=== PATIENT | male | born 1960 | race Caucasian/White ===

== ENCOUNTER → 2018-08-27 | Outpatient (CLI) | payer MEDICARE ==
--- NOTE | 2018-08-27 16:30 | US ---
EXAM DESCRIPTION: Venous,Upper Extremity RT CLINICAL HISTORY: Pain in right arm COMPARISON: None Available. TECHNIQUE: Right upper extremity venous duplex FINDINGS: Thrombus is noted within the right basilic and cephalic veins. Remainder of the right upper extremity veins appear normal with no evidence of thrombosis.. IMPRESSION: Thrombus is noted within the right basilic and cephalic veins. Electronically signed by: Samy Waterman MD 08/27/2018 4:28 PM CDT
== END ==
LOC: LAB.O 15:03
PROVIDERS: ATTEND Nurse Practitioner Family
DX: I82.611 Acute embolism and thrombosis of superficial veins of right upper extremity (principal); R53.83 Other fatigue; Z85.72 Personal history of non-Hodgkin lymphomas

== ENCOUNTER → 2018-10-21 | Outpatient (CLI) | payer MEDICARE ==
--- NOTE | 2018-10-21 14:08 | US ---
EXAM DESCRIPTION: Venous,Upper Extremity RT: ULTRASOUND. CLINICAL HISTORY: HX OF DEEP VEIN THROMBOSIS. Right basilic and cephalic veins on the prior study. Patient stopped taking Eliquis. Now taking aspirin COMPARISON: Ultrasound venous right upper extremity 08/27/2018. TECHNIQUE: Two -dimensional and doppler sonographic evaluation of the deep venous system of the right upper extremity. FINDINGS: Doppler evaluation shows normal color flow and normal phasicity and augmentation of the right basilic vein. The vein shows no echogenicity in the lumen on grayscale images, and also completely compressible with the transducer. Decreased color flow and venous waveform in the right cephalic vein. Echogenic material in the lumen on grayscale images, but partially compressible. Normal Doppler color flow and normal phasicity and augmentation of the right subclavian, jugular, axillary, brachial, radial vein and ulnar vein. These right upper extremity deep veins showed normal occlusion with transducer pressure. Two-dimensional survey showed no echogenic thrombus within these veins. IMPRESSION: Duplex ultrasound evaluation of the right upper extremity deep venous system showing no thrombus in the right basilic vein compared to the prior study. Partial thrombus still visualized in the right cephalic vein . The remaining deep veins of the right neck, shoulder, and upper extremity contain no thrombus. CRITICAL COMMUNICATION: The critical value was discussed directly by phone by Dr. Dave, with Dr. Hayn Dewitt at approximately 1345 hours, on 10/21/2018. Electronically signed by: Donta Dave MD 10/21/2018 2:06 PM CDT
--- NOTE | 2018-10-22 17:05 | RAD ---
EXAM DESCRIPTION: Elbow,Right 2 Views (accession [id number]), Wrist,Right 3 Views (accession [id number]), Shoulder,Right 2 or More Views (accession [id number]): CR/DR/XR. CLINICAL HISTORY: 57 years Male, FALL COMPARISON: Ultrasound of the right venous upper extremity 10/21/2018. TECHNIQUE: 2 views AP and lateral right elbow. 3 views internal/external rotation right shoulder. 3 views right wrist AP lateral and oblique. FINDINGS: Normal bone density. No soft tissue swelling in the elbow. No fracture or dislocation. No abnormal radiodense objects in the soft tissues but there is a calcification in the origin of the common flexor tendon. Marginal inferior spur on the right AC joint. Mild downsloping of the lateral acromion. Mild narrowing of the inferior glenohumeral joint. No fracture dislocation. No radiodense loose bodies. VAD in the right chest proximal superior vena cava with access via right subclavian vein. Injection port visualized. ORIF right distal radius fracture with plate and screws and LISA in through the radial styloid. Narrowing of the radial scaphoid joint and the scapholunate joint. Healing radial styloid fracture. No abnormality distal right ulna. IMPRESSION: Healing fracture distal right radius with ORIF. Minimal arthrosis and narrowing right radial scaphoid joint and minimal narrowing of the right scapholunate joint. No acute bony abnormality. No acute bony or joint margin abnormality right elbow. Bone density in the origin of the common flexor tendon. Minimal arthrosis of the AC joint and downsloping of the lateral acromion most likely narrowing the supraspinatus tendon outlet and minimal narrowing inferior right glenohumeral joint. No acute bony or joint margin abnormality. Electronically signed by: Donta Dave MD 10/22/2018 5:03 PM CDT
--- NOTE | 2018-10-22 17:05 | RAD ---
EXAM DESCRIPTION: Elbow,Right 2 Views (accession [id number]), Wrist,Right 3 Views (accession [id number]), Shoulder,Right 2 or More Views (accession [id number]): CR/DR/XR. CLINICAL HISTORY: 57 years Male, FALL COMPARISON: Ultrasound of the right venous upper extremity 10/21/2018. TECHNIQUE: 2 views AP and lateral right elbow. 3 views internal/external rotation right shoulder. 3 views right wrist AP lateral and oblique. FINDINGS: Normal bone density. No soft tissue swelling in the elbow. No fracture or dislocation. No abnormal radiodense objects in the soft tissues but there is a calcification in the origin of the common flexor tendon. Marginal inferior spur on the right AC joint. Mild downsloping of the lateral acromion. Mild narrowing of the inferior glenohumeral joint. No fracture dislocation. No radiodense loose bodies. VAD in the right chest proximal superior vena cava with access via right subclavian vein. Injection port visualized. ORIF right distal radius fracture with plate and screws and LISA in through the radial styloid. Narrowing of the radial scaphoid joint and the scapholunate joint. Healing radial styloid fracture. No abnormality distal right ulna. IMPRESSION: Healing fracture distal right radius with ORIF. Minimal arthrosis and narrowing right radial scaphoid joint and minimal narrowing of the right scapholunate joint. No acute bony abnormality. No acute bony or joint margin abnormality right elbow. Bone density in the origin of the common flexor tendon. Minimal arthrosis of the AC joint and downsloping of the lateral acromion most likely narrowing the supraspinatus tendon outlet and minimal narrowing inferior right glenohumeral joint. No acute bony or joint margin abnormality. Electronically signed by: Donta Dave MD 10/22/2018 5:03 PM CDT
--- NOTE | 2018-10-22 17:05 | RAD ---
EXAM DESCRIPTION: Elbow,Right 2 Views (accession [id number]), Wrist,Right 3 Views (accession [id number]), Shoulder,Right 2 or More Views (accession [id number]): CR/DR/XR. CLINICAL HISTORY: 57 years Male, FALL COMPARISON: Ultrasound of the right venous upper extremity 10/21/2018. TECHNIQUE: 2 views AP and lateral right elbow. 3 views internal/external rotation right shoulder. 3 views right wrist AP lateral and oblique. FINDINGS: Normal bone density. No soft tissue swelling in the elbow. No fracture or dislocation. No abnormal radiodense objects in the soft tissues but there is a calcification in the origin of the common flexor tendon. Marginal inferior spur on the right AC joint. Mild downsloping of the lateral acromion. Mild narrowing of the inferior glenohumeral joint. No fracture dislocation. No radiodense loose bodies. VAD in the right chest proximal superior vena cava with access via right subclavian vein. Injection port visualized. ORIF right distal radius fracture with plate and screws and LISA in through the radial styloid. Narrowing of the radial scaphoid joint and the scapholunate joint. Healing radial styloid fracture. No abnormality distal right ulna. IMPRESSION: Healing fracture distal right radius with ORIF. Minimal arthrosis and narrowing right radial scaphoid joint and minimal narrowing of the right scapholunate joint. No acute bony abnormality. No acute bony or joint margin abnormality right elbow. Bone density in the origin of the common flexor tendon. Minimal arthrosis of the AC joint and downsloping of the lateral acromion most likely narrowing the supraspinatus tendon outlet and minimal narrowing inferior right glenohumeral joint. No acute bony or joint margin abnormality. Electronically signed by: Donta Dave MD 10/22/2018 5:03 PM CDT
== END ==
LOC: LAB.O 12:20
PROVIDERS: ATTEND Family Medicine
DX: I73.00 Raynaud's syndrome without gangrene (principal); I82.611 Acute embolism and thrombosis of superficial veins of right upper extremity; S52.501D Unspecified fracture of the lower end of right radius, subsequent encounter for closed fracture with routine healing; M19.011 Primary osteoarthritis, right shoulder; M19.031 Primary osteoarthritis, right wrist; Z86.718 Personal history of other venous thrombosis and embolism; W19.XXXA Unspecified fall, initial encounter

== ENCOUNTER → 2018-11-30 | Outpatient (CLI) | payer MEDICARE ==
--- NOTE | 2018-11-30 16:21 | RAD ---
EXAM DESCRIPTION: FIVE VIEW CERVICAL SPINE CLINICAL HISTORY: CERVICAL RADICULOPATHY COMPARISON: None Available. TECHNIQUE: AP/lateral/ both oblique/open-mouth odontoid FINDINGS: Bilateral carotid artery calcification is observed. The atlantoaxial junction and dens are normal. Mild loss of disc height is seen at the C3-4 level. Mild anterior osteophyte formation is observed at the C5-6 and C6-7 levels. Some anterior osteophyte formation is also seen at the C7-T1 level. The neural foramina are preserved. IMPRESSION: Mild degenerative changes are observed as described above. Electronically signed by: Rigo Campos MD 11/30/2018 4:20 PM CDT
== END ==
LOC: RAD 12:09
PROVIDERS: ATTEND Family Medicine
DX: M47.22 Other spondylosis with radiculopathy, cervical region (principal)

== ENCOUNTER → 2018-12-01 | Outpatient (CLI) | payer MEDICARE | LOC: YCFC.O 15:31 | PROVIDERS: ATTEND Family Medicine | DX: C85.90 Non-Hodgkin lymphoma, unspecified, unspecified site (principal); M79.601 Pain in right arm ==

== ENCOUNTER → 2018-12-07 | Outpatient (CLI) | payer MEDICARE ==
--- NOTE | 2018-12-07 19:52 | MRI ---
EXAM DESCRIPTION: Cervical Spine: MRI. CLINICAL HISTORY: 58 years Male RADICULOPATHY COMPARISON: Cervical spine radiographs November 30, 2018. TECHNIQUE: Multiplanar, high-field MRI, multiple sequences, non-contrast Cervical spine. FINDINGS: C3-C4: Disc space decreased. Anterior bulging with endplate ridging. Posterior minimal disc bulging bulging endplate abutting the cord. Mild bilateral facet hypertrophy. Mild to moderate canal narrowing and mild bilateral neural foraminal narrowing. C4-C5: Minimal disc desiccation with no bulging. Mild left facet hypertrophic arthrosis. Mild left neural foraminal narrowing. Canal and right neuroforamen are patent. C5-C6: Disc desiccation with disc space preserved. Minimal anterior bulging. Tiny posterior midline bulge. Facets are negative. Canal and neural foramina are patent. C6-C7: Disc desiccation and disc space preserved. Posterior right paracentral bulge abutting the right ventral cord and the right C7 nerve. Right uncinate spur and moderate right neural foraminal narrowing. Left neuroforamen patent. Minimal hypertrophic facet arthrosis bilaterally. C7-T1: Disc desiccation with anterior bulging. Posterior disc bulge. Mild left neural foraminal narrowing. Canal and right neuroforamen are patent. Normal signal in the remaining discs with no bulging. Disc spaces preserved. Canal and neural foramina are patent. Facet joints are unremarkable. Spinal alignment reduced lordosis. No cord compression or cord edema. Atlantoaxial joint minimal degenerative hypertrophy.. Base of the cerebellar tonsils is above the foramen magnum. Paravertebral soft tissues unremarkable.. Vertebral bodies are not compressed at any level. Normal marrow signal in the remaining vertebral bodies and the posterior elements. IMPRESSION: 1. C3-C4 disc desiccation with disc space loss. Mild to moderate canal narrowing and mild bilateral neural foraminal narrowing. 2. No significant disc bulging or herniation any level. Sporadic hypertrophic facet arthrosis. No canal or neural foraminal stenosis at other levels. Electronically signed by: Donta Dave MD 12/07/2018 7:51 PM CDT
== END ==
LOC: MRI 09:24
PROVIDERS: ATTEND Anesthesiology Pain Medicine
DX: M50.11 Cervical disc disorder with radiculopathy, high cervical region (principal); M12.88 Other specific arthropathies, not elsewhere classified, other specified site

== ENCOUNTER → 2019-06-29 | Outpatient (CLI) | payer MEDICARE | LOC: LAB.O 11:48 | PROVIDERS: ATTEND Internal Medicine Hematology & Oncology | DX: Z94.81 Bone marrow transplant status (principal); C85.89 Other specified types of non-Hodgkin lymphoma, extranodal and solid organ sites ==

== ENCOUNTER → 2019-09-21 | Outpatient (CLI) | payer MEDICARE | LOC: YCFC.O 12:44 | PROVIDERS: ATTEND Family Medicine | DX: C85.90 Non-Hodgkin lymphoma, unspecified, unspecified site (principal); R41.3 Other amnesia; Z12.5 Encounter for screening for malignant neoplasm of prostate; R53.83 Other fatigue; Z79.899 Other long term (current) drug therapy; Z13.220 Encounter for screening for lipoid disorders; R35.1 Nocturia | CPT/HCPCS: 36415; 80053; 80061; 81001; 82607; 82746; 84443; 85025; 85651; 86140; G0103 ==